=== PATIENT | male | born 1935 | race Caucasian/White ===

== ENCOUNTER 2016-11-15 06:54 | Emergency (ER) | payer MEDICARE ==
[~2016-11-15] VITALS: Ht 177.8 cm; Wt 79.8 kg
[2016-11-15] MEDS ORDERED: LOTENSIN20 MG PO (08:13)
[2016-11-15] MEDS ORDERED: COREG25 MG PO (08:14)
[2016-11-15] MEDS ORDERED: HYDROCHLOROTH12.5 MG PO (08:14)
[2016-11-15] MEDS ORDERED: HALFPRIN81 MG PO (08:15)
[2016-11-15] MEDS ORDERED: VITAMIN B-12100 MCG PO (08:15)
== END 2016-11-15 10:30 | disposition short-term general hospital (02) ==
LOC: ER 06:54
DX: S72.011A Unspecified intracapsular fracture of right femur, initial encounter for closed fracture (principal); M25.561 Pain in right knee; E11.9 Type 2 diabetes mellitus without complications; I10 Essential (primary) hypertension; E78.5 Hyperlipidemia, unspecified; D64.9 Anemia, unspecified; Z98.890 Other specified postprocedural states; Z79.82 Long term (current) use of aspirin; Z79.899 Other long term (current) drug therapy; Z88.8 Allergy status to other drugs, medicaments and biological substances; W18.30XA Fall on same level, unspecified, initial encounter
CPT/HCPCS: 73502-RT